=== PATIENT | female | born 2000 | race Caucasian/White ===

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

== ENCOUNTER 2020-03-19 08:23 | Emergency (ER) | payer SELFPAY ==
[~2020-03-19] VITALS: Ht 165.1 cm; Wt 71.9 kg
--- NOTE | 2020-03-19 09:00 | NUR ---
PT AMBULATORY TO ROOM 21 FROM LOBBY AT THIS TIME.
--- NOTE | 2020-03-19 09:06 | NUR ---
pt presents to ED with c/o epigastric pain, n/v x 10 days. denies diarrhea. pt is a&o, resps even and unlabored, denies chance of . pt states she is menstruating at this time. pt changed into gown, placed on bp and spo2 monitors. call light in reach. warm blanket provided. awaiting provider and orders at this time.
[2020-03-19 09:33] LABS: BASOPHILS # (AUTO) 0.02 x10^3/uL (0-0.3); BASOPHILS % (AUTO) 0 % (0-1); EOSINOPHILS # (AUTO) 0.36 x10^3/uL (0-0.8); EOSINOPHILS % (AUTO) 5 % (1-7); LYMPHOCYTES # (AUTO) 1.39 x10^3/uL (1-6.1); LYMPHOCYTES % (AUTO) 19 % (22-44); MD NO; MEAN CORPUSCULAR HEMOGLOBIN 28.6 pg (27.0-34.8); MEAN CORPUSCULAR HGB CONC 32.4 g/dL (32.4-35.8); MEAN CORPUSCULAR VOLUME 88.2 fL (80-100); MEAN PLATELET VOLUME 9.2 fL (7.4-10.4); MONOCYTES % (AUTO) 4 % (2-9); NEUTROPHILS # (AUTO) 5.18 x10^3/uL (1.8-8.0); NEUTROPHILS % (AUTO) 71 % (42-75); PLATELET COUNT 281 x10^3/uL (130-400); RED BLOOD COUNT 4.64 x10^6/uL (3.82-5.3); RED CELL DISTRIBUTION WIDTH 13.4 % (9.6-15.2)
--- NOTE | 2020-03-19 09:33 | NUR ---
us in progress at bedside.
[2020-03-19 09:47] LABS: ALANINE AMINOTRANSFERASE 11 U/L (12-78); ALBUMIN 3.8 g/dL (3.4-5.0); ANION GAP 4 mmol/L (5-15); CALCIUM 8.7 mg/dL (8.5-10.1); CHLORIDE 112 mmol/L (98-107)
--- NOTE | 2020-03-19 09:50 | NUR ---
REPORT RECEIVED FROM ASHLEY BRAVO. [facility]
[2020-03-19 09:53] LABS: ALKALINE PHOSPHATASE 73 U/L (45-117); BILIRUBIN,TOTAL 0.3 mg/dL (0.2-1.0); CREATININE 0.85 mg/dL (0.55-1.02); TOTAL PROTEIN 7.2 g/dL (6.4-8.2)
--- NOTE | 2020-03-19 09:58 | NUR ---
report given to ASHLEY Maurer, US still in progress. pt to give ua when us complete.
[2020-03-19 10:34] LABS: MICROSCOPIC NOT IND
[2020-03-19] MEDS ORDERED: MAALOX/HYOSCYAMINE/LIDOCAINE 45 ML BTL PO ONE (11:00)
[2020-03-19] MEDS ORDERED: MAALOX/HYOSCYAMINE/LIDOCAINE 45 ML BTL ONE (11:13)
[2020-03-19 11:15] VITALS: BP 103/60
--- NOTE | 2020-03-19 11:15 | NUR ---
PT MEDCIATED PER MAR
== END 2020-03-19 12:18 | disposition home or self-care (01) ==
LOC: ED 10:15
DX: K29.00 Acute gastritis without bleeding (principal); I49.3 Ventricular premature depolarization; R11.0 Nausea; J45.909 Unspecified asthma, uncomplicated
CPT/HCPCS: 36415; 76700; 80053; 81003; 83690; 84703; 85025; 93005; 99285